=== PATIENT | female | born 1940 | race Caucasian/White ===

== ENCOUNTER 2017-03-08 18:10 | Emergency (ER) | payer MEDICARE, BC ==
[~2017-03-08] VITALS: Ht 158.8 cm; Wt 49.8 kg
[~2017-03-08 18:10] MED LIST: ASPI81 PO; NEXI40CA PO
[2017-03-08 18:23] VITALS: BP 205/101; PULSE 92; RESP 18; TEMP 98; O2SAT 98
[2017-03-08] MEDS ORDERED: METO25TA3 PO (19:25)
[2017-03-08 19:26] VITALS: BP 157/104; PULSE 81; RESP 18; O2SAT 99
[2017-03-08 19:41] VITALS: BP 158/88; PULSE 74; RESP 18; O2SAT 99
--- NOTE | 2017-03-08 20:01 | PD ---
HPI Chief Complaint: Hypertension Time Seen by Provider: 19:54 Travel History International Travel<30 days: No Contact w/Intl Traveler<30days: No Traveled to known affect area: No History of Present Illness HPI 76-year-old female presents to the emergency department for complaint of elevated blood pressure. Patient states one week ago while checking her blood pressure along with a friend she noted her blood pressure to be elevated. At that time patient is been treated with metoprolol 12.5 mg twice daily. More recently she was encouraged to take metoprolol 12.5 mg in the a.m. and 25 mg in the p.m. She just saw her primary care provider today who encouraged her to take 25 mg twice daily beginning in the morning. Patient states that she's had some mild generalized weakness intermittently but otherwise has had no symptoms. Patient states she just happened to identify her blood pressure being elevated when she happened to be checking it along with a friend last week. Patient states subsequently she is been checking her blood pressure daily. Patient states this evening her blood pressure was quite elevated and thereafter took her 25 mg dose of metoprolol and decided to come to the emergency room for evaluation. Patient denies any headache altered mentation change in vision dizziness neck pain chest pain palpitations sweats near syncope syncope shortness of breath nausea vomiting or balance disturbance or new upper or lower extremity numbness tingling or weakness. Patient feels well at this time. Patient is concerned about elevated blood pressure. Patient voices no other concerns or complaints. Patient does take low-dose aspirin daily has history of anxiety depression hypertension dyslipidemia GERD previous hysterectomy and cataract surgery and denies tobacco use. PFSH Past Medical History Narrative Medical Arthritis hypertension and dyslipidemia and anxiety depression and GERD cataract surgery hysterectomy no tobacco use no alcohol use: Nursing notes reviewed Hx Anticoagulant Therapy: Yes (81 MG ASA) Arthritis: Yes Asthma: No Autoimmune Disease: No Blood Disorders: No Anxiety: Yes Depression: Yes Heart Rhythm Problems: No Cancer: No Cardiovascular Problems: Yes High Cholesterol: Yes Chemotherapy: No Chest Pain: No Congestive Heart Failure: No COPD: No Cerebrovascular Accident: No Diabetes: No Diminished Hearing: No Endocrine: No Gastrointestinal Disorders: Yes (GERD) GERD: Yes Glaucoma: No Genitourinary: No Headaches: No Hepatitis: No Hiatal Hernia: No Hypertension: Yes (HISTORY) Immune Disorder: No Implanted Vascular Access Dvce: No Kidney Stones: No Musculoskeletal: Yes (arthritis) Neurologic: No Psychiatric: Yes Reproductive: No Respiratory: No Migraines: No Myocardial Infarction: No Radiation Therapy: No Renal Failure: No Seizures: No Sickle Cell Disease: No Sleep Apnea: No Ulcer: No Tetanus Vaccination: Unknown Influenza Vaccination: No ?: Not Menopausal: Yes Past Surgical History Abdominal Surgery: No AICD: No Appendectomy: No Arteriovenous Shunt: No Cardiac Surgery: No Cholecystectomy: No Ear Surgery: No Endocrine Surgery: No Eye Surgery: Yes (CATARACT) Genitourinary Surgery: No Gynecologic Surgery: Yes (HYSTERECTOMY) Hysterectomy: Yes (PARTIAL .) Insulin Pump: No Joint Replacement: No Neurologic Surgery: No Oral Surgery: No Pacemaker: No Thoracic Surgery: Yes Other Surgery: Yes Social History Alcohol Use: No Tobacco Use: No Substance Use: No Allergies-Medications (Allergen,Severity, Reaction): Coded Allergies: meperidine (Unverified Allergy, Severe, HALLUCINATIONS-BEHAVIORAL, ) Reported Meds & Prescriptions Reported Meds & Active Scripts Active Reported Metoprolol Tartrate 25 Mg Tab 25 Mg PO BID Review of Systems Except as stated in HPI: all other systems reviewed are Neg General / Constitutional: No: Fever, Chills Eyes: No: Diploplia, Blurred Vision, Photophobia, Visual changes HENT: No: Headaches, Vertigo, Lightheadedness, Congestion, Neck Pain Cardiovascular: No: Chest Pain or Discomfort, Palpitations, Diaphoresis, Syncope Respiratory: No: Cough, Shortness of Breath Gastrointestinal: No: Nausea, Vomiting, Diarrhea, Abdominal Pain Genitourinary: No: Dysuria, Flank Pain Musculoskeletal: No: Myalgias, Arthralgias Skin: No Rash Neurologic: No: Weakness, Dizziness, Syncope, Focal Abnormalities, Coordination Problem, Ataxia, Headache, Change in Mentation, Slurred Speech, Paresthesia, Incontinence, Seizures, Sensory Disturbance Psychiatric: No: Anxiety Endocrine: No: Heat Intolerance Hematologic/Lymphatic: No: Easy Bruising Physical Exam Narrative GENERAL: Well-developed well-nourished female in no acute distress no respiratory distress; GCS 15 SKIN: Warm and dry. HEAD: Atraumatic. Normocephalic. EYES: Pupils equal and round. Extraocular muscles intact. No scleral icterus. No injection or drainage. ENT: No nasal bleeding or discharge. Mucous membranes pink and moist. Airways patent. NECK: Trachea midline. No JVD. Supple no meningismus no nuchal rigidity. CARDIOVASCULAR: Regular rate and rhythm. RESPIRATORY: No accessory muscle use. Clear to auscultation. Breath sounds equal bilaterally. GASTROINTESTINAL: Abdomen soft, non-tender, nondistended. Hepatic and splenic margins not palpable. MUSCULOSKELETAL: Extremities without clubbing, cyanosis, or edema. No obvious deformities. NEUROLOGICAL: Awake and alert. No obvious cranial nerve deficits. Motor grossly within normal limits. Five out of 5 muscle strength in the arms and legs. No limb ataxia. No pronator drift. Sensory exam intact. Normal speech. PSYCHIATRIC: Appropriate mood and affect; insight and judgment normal. Data Data Last Documented VS Vital Signs Date Time Temp Pulse Resp B/P (MAP) Pulse Ox O2 Delivery O2 Flow Rate FiO2 03/08/17 20:41 72 18 156/80 (105) 99 Room Air 03/08/17 18:23 98.0 MDM Medical Decision Making Medical Screen Exam Complete: Yes Emergency Medical Condition: Yes Medical Record Reviewed: Yes Differential Diagnosis Hypertension, inadequate blood pressure control, hypertensive urgency, ACS, renal insufficiency Narrative Course Upon arrival to the emergency department triage vital signs specific blood pressure was elevated home however repeat blood pressure in the emergency department after resting patient denies any symptoms or complaints and blood pressure is 158/88, heart rate is 74, ra O2 saturation 99%, respirations nonlabored. Patient did take her evening dose of metoprolol 25 mg prior to arrival to the emergency department. Have discussed with patient diagnostic such as metabolic panel EKG however patient is asymptomatic this time has been asymptomatic and is working with her primary care with [facility] to increase antihypertensive management and to take her increased evening dose of metoprolol this evening with plan to take increase his metoprolol in the a.m. for 25 mg twice daily aspirin regimen and plan for close follow-up with her primary care subsequently. Patient declines lab work at this time her EKG. Blood pressure continues to trend downward to more normalized measurement and patient remains asymptomatic desirous of being discharged to home and does not want to pursue any diagnostics. Diagnosis Primary Impression: HTN (hypertension) Referrals: Primary Care Physician call for appointment Patient Instructions: General Instructions Zhanna Jones MD Mar 08, 2017 20:01
[2017-03-08 20:16] VITALS: BP_SYST 154; BP_SYST 164; BP_DIAS 79; BP_DIAS 87; RESP 18
[2017-03-08 20:41] VITALS: BP 156/80; PULSE 72; RESP 18; O2SAT 99
[2017-03-08 20:59] VITALS: BP 155/84
== END 2017-03-08 21:00 | disposition home or self-care (01) ==
LOC: PHED 18:10
DX: I10 Essential (primary) hypertension (principal); E78.00 Pure hypercholesterolemia, unspecified; F32.9 Major depressive disorder, single episode, unspecified; K21.9 Gastro-esophageal reflux disease without esophagitis; M19.90 Unspecified osteoarthritis, unspecified site; Z79.82 Long term (current) use of aspirin
CPT/HCPCS: 99281